=== PATIENT | female | born 1985 | race Hispanic/Latino ===

== ENCOUNTER 2017-06-05 15:35 | Emergency (ER) | payer OTHER ==
[~2017-06-05] VITALS: Ht 152.4 cm; Wt 61.4 kg
[~2017-06-05 15:35] MED LIST: FLUD0.1T PO; HYDR-4003 PO; IBUP-1827 PO; NORT25CA PO; PANT20TA2 PO; PRD5T PO
[2017-06-05 15:49] VITALS: BP 139/90; PULSE 73; RESP 16; O2SAT 100
--- NOTE | 2017-06-05 15:59 | ED.REPORT ---
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 right hand dominant. primary care is kvng. 06/22 with movement 04/22 with not moving. Was building stairs and was putting in a screw, the drill jumped and hit her in the hand. Nursing Notes Stated Complaint: RIGHT ARM INJURY Chief Complaint: Extremity Trauma Nursing Notes Reviewed: Yes Allergies: Coded Allergies: No Known Allergies (Verified , 06/05/17) Scheduled Fludrocortisone Acetate (Fludrocortisone Acetate) 0.1 Mg Tablet 0.1 MG PO HS Nortriptyline (Nortriptyline) 25 Mg Capsule 25 MG PO HS Pantoprazole DR (Pantoprazole DR) 20 Mg Tablet.dr 20 MG PO BID Prednisone (PredniSONE) 5 Mg Tab 5 MG PO HS Scheduled PRN Hydrocodone-Acetaminophen 5-325 mg (Hydrocodone-Acetaminophen 5-325 mg) 1 Each Tablet 1-2 TABLET PO Q4H PRN PRN For Moderate Pain Ibuprofen (Ibuprofen) 600 Mg Tablet 600 MG PO QID PRN PRN For Pain General Time Seen by MD: 15:58 Chief Complaint Hand injury right Hx Obtained From: Patient Caused by: Accidental Context: Occurred at: Home injury Location: : Hand right Severity: Current: Pain level 8 out of 10 Past Medical History Past Medical History adrenal insufficiency on chronic steroids chronic UTIs secondary to a vaginal reconstruction surgery Reports: GERD Past Surgical History vaginal reconstruction surgery as a child bladder/vaginal lift in 1998 Reports: , Cholecystectomy Smoking History Never Smoker Social History Alcohol Use: Denies alcohol use Drug Use: Denies drug use Other Social History: Good social support, Local resident Occupation lives by self and with son, 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 06/05/2017 Ambulatory Status Independent Review of Systems Basic Review of Systems Eyes: Vision NL, No discharge : No dysuria, No frequency Psychiatric: Normal thought content Physical Exam Initial Vital Signs Vital Signs (First) Date Time Temp Pulse Resp B/P Pulse Ox O2 Delivery O2 Flow Rate FiO2 06/05/17 15:49 36.8 73 16 139/90 100 Room Air Initial VS: Reviewed, Vital signs normal General/Constitutional: Well-developed, Well-nourished Head / Eyes: Atraumatic, Normocephalic, PERRL ENT: Mucous membranes moist, Conjunctiva normal, No scleral icterus Neck: Supple, Non-tender, Full range of motion Respiratory: Breath sounds normal, Clear to auscultation, No respiratory distress Cardiovascular: Regular rate & rhythm, Heart sounds normal, Intact distal pulses Abdomen / GI: Soft, Non-tender, No guarding, No rebound, No distention Back: No CVA tenderness Lymphatic: No lymphadenopathy Lower Extremities: Vascular intact, Neuro intact, No swelling, No tenderness Skin: Warm, Dry, No cyanosis Neurologic: Alert, Oriented, Nonfocal Psychiatric: Mood/affect normal, Behavior normal, Normal thought content General/Constitutional: Awake, Alert, No acute distress, Well appearing, Well developed, Well hydrated Respiratory / Chest: Atraumatic, Breath sounds NL, Breath sounds = bilat, No respiratory distress Cardiovascular: Heart rate NL, Regular rhythm, Heart sounds NL, No gallop Upper Extremity / MS: Atraumatic, Inspection NL, Full range of motion, No swelling Left Hand: Positive: Erythema present, Ganglion cyst present, Joint effusion present, ROM reduced, Tenderness present..., Warmth present patient with voluntary guarding. sensation intact, cap refill less than 2 sec. Interpretation & Diagnostics X-Ray Interpretation Xray Interpretation: ROCEDURE: X-RAY RIGHT HAND, MINIMUM THREE VIEWS ([id number]) INDICATIONS: trauma TECHNIQUE: 3 views of the hand(s) acquired. COMPARISON: None. FINDINGS: Bones: There is an oblique, minimally displaced fracture through the mid and proximal portion of the fourth metacarpal. There is no visible intra-articular extension. Soft tissues: No suspicious soft tissue calcifications. IMPRESSION: Oblique proximal and mid fourth metacarpal fracture. Dictated by: Kaylyn Arroyo M.D. on 06/05/2017 at 16:44 Approved by: Kaylyn Arroyo M.D. on 06/05/2017 at 16:45 Re-Eval/Medical Decision Med Decision/Clinical Course 31 year old female presents to the Er for evualation of right hand pain after she was drilling and the drilled jumped nad hit her hand. No sign of compartment syndrome. X-ray shows a fracture Discharge & Departure Impression: Primary Impression: Hand fracture, right Encounter type: initial encounter Fracture type: closed Qualified Code: S62.91XA - Unspecified fracture of right wrist and hand, initial encounter for closed fracture Disposition: Home Patient Instructions: Hand Fracture (ED) Additional Instructions: The x-ray shows that you have a 4th metacarpal fracture. I am sorry this happened. Keep the splint on and dry till you are seen by ortho Dr. Bo. You can purchase a cast protector at any drug store to keep the splint dry. Use ice 15 minutes on and 15 minutes off. Use ibuprofen 800 mg 3 times a day for 5 days to reduce the swelling. Elevate the hand as much as possible. Use hydrocodone 1 up to 2 times a day as needed for severe unrelenting pain. Note for off work for 1 week. Referrals: Staci Gonzalez MD (PCP) Chago Bo DO EDSupervising Provider for APC: Daniel Garcia MD Attending Statement I saw and evaluated the patient in conjunction with the DIRECTOR OF MATERIALS MANAGEMENT. I agree with the plan and findings as documented above. In brief, 31-year-old female presenting to the ED for evaluation of right hand pain. Well appearing, no acute distress. Nonlabored respirations. Good peripheral perfusion. Neurovascularly intact throughout the right hand, including in the ulnar, median, and radial nerve distributions. Good cap refill. Splinted as per above and remains neurovascularly intact after splint placement. Given above, plan discharge home w/ careful return precautions, close orthopedic outpatient follow up. Patient agreeable to plan as stated, no further questions. copies to: Chago Bo DO; Staci Gonzalez MD, Sue [facility] Jun 05, 2017 15:59 Daniel Garcia MD Jun 05, 2017 16:20
[2017-06-05] MEDS ORDERED: HYDROcodone-APAP 5-325 mg Tablet PO ONE (16:45)
--- NOTE | 2017-06-05 16:46 | DRSVH ---
PROCEDURE: X-RAY RIGHT HAND, MINIMUM THREE VIEWS ([id number]) INDICATIONS: trauma TECHNIQUE: 3 views of the hand(s) acquired. COMPARISON: None. FINDINGS: Bones: There is an oblique, minimally displaced fracture through the mid and proximal portion of the fourth metacarpal. There is no visible intra-articular extension. Soft tissues: No suspicious soft tissue calcifications. IMPRESSION: Oblique proximal and mid fourth metacarpal fracture. Dictated by: Kaylyn Arroyo M.D. on 06/05/2017 at 16:44 Approved by: Kaylyn Arroyo M.D. on 06/05/2017 at 16:45
[2017-06-05 17:40] VITALS: BP 126/77; PULSE 74; RESP 16; O2SAT 100
[2017-06-09] MEDS ORDERED: IBUP800T28 PO (10:32)
[2017-06-09] MEDS ORDERED: FLUD0.1T PO (10:32)
[2017-06-09] MEDS ORDERED: PRD5T PO (10:32)
[2017-06-09] MEDS ORDERED: NORT25CA PO (10:32)
== END 2017-06-05 17:41 | disposition home or self-care (01) ==
LOC: SED 15:35
DX: S62.394A Other fracture of fourth metacarpal bone, right hand, initial encounter for closed fracture (principal); W29.8XXA Contact with other powered hand tools and household machinery, initial encounter; Y93.H3 Activity, building and construction; Y92.89 Other specified places as the place of occurrence of the external cause; Y99.8 Other external cause status; K21.9 Gastro-esophageal reflux disease without esophagitis; Z87.440 Personal history of urinary (tract) infections; Z90.49 Acquired absence of other specified parts of digestive tract; Z98.890 Other specified postprocedural states

== ENCOUNTER → 2017-06-11 | Day surgery (SDC) | payer OTHER ==
[2017-06-11] VITALS (15 sets, daily range): BP systolic 115–137; BP diastolic 63–88; PULSE 66–101; RESP 16–27; O2SAT 92–99
[~2017-06-11] VITALS: Ht 152.4 cm; Wt 65.9 kg
[~2017-06-11] MED LIST changes: +Atropine 0.4 mg/mL Inj IVPUSH PRN; +Bupivacaine-MPF 0.5% 30 mL Inj INFILTRATE ONE; +CeFAZolin 2 Gm/50 mL D5W Duplex Bag IV ONE; +CeFAZolin 2 Gm/50 mL D5W IV Premix IV ONE; +Dexamethasone 4 mg/mL Inj IVPUSH PRN; +EPHEDrine Sulfate 50 mg/mL Inj IVPUSH PRN; -HYDR-4003 PO; -IBUP-1827 PO; +IBUP800T28 PO; +Labetalol 5 mg/mL 20 mL Inj IV PRN; +Lactated Ringer's 1,000 ML IV SCH; +Lactated Ringer's 500 ML IV ONE; +Lactated Ringer's 500 ML IV PRN; +Ondansetron 2 mg/mL 2 mL Inj ONE; -PANT20TA2 PO; +Phenylephrine 10,000 mCg/mL Inj IVPUSH PRN; +Propofol 10,000 mCg/mL 20 mL Inj ONE; +fentaNYL-PF 50 mCg/mL 2 mL Inj ONE; +hydrALAZINE 20 mg/mL Inj IVPUSH PRN; +oxyCODONE-Acetamin 5-325 mg Tablet PO PRN
[2017-06-11] MEDS: Lactated Ringer's 1,000 ML IV SCH ×2 (12:08→13:00)
--- NOTE | 2017-06-11 13:20 | PCM.HPANE ---
Patient Data Date of Service: Jun 11, 2017 Surgeon Admitting Provider: Attending Provider:Ignacio Cordoba MD Primary Care Physician:Staci Gonzalez MD Other Provider:Abran Singer Anesthesia Reason for Visit Right 4TH Metacarpal Fracture Ht/WT & BMI Height (Feet): 5 Height (Inches): 0 Weight (Kilograms): 65.9 Body Mass Index 28.00 Allergies Coded Allergies: Sulfa (Sulfonamide Antibiotics) (Verified Allergy, Unknown, altered heart rate, headache, 06/11/17) Past Anesthesia History Anesthesia History: Denies:: Abnormal Airway, Anesthesia Reactions, Difficult Intubation, Fam Anesthesia Reaction, Fam Malignant Hypertherm, Malignant Hyperthermia Diabetes History Hx Diabetes?: No MRSA MRSA: No Medications Home Meds Incl Beta Nina: No Reported Medications Prednisone (PredniSONE)5 Mg Tab5 Mg PO DAILY Ref 0 06/09/17 Nortriptyline 25 Mg [id number] Mg PO HS 06/09/17 Ibuprofen 800 Mg Irkspp128 Mg PO TID PRN For Pain Ref 0 06/09/17 Fludrocortisone Acetate 0.1 Mg Tablet0.1 Mg PO DAILY Ref 0 06/09/17 Discontinued Reported Medications Nortriptyline 25 Mg Cwanemm34 Mg PO HS #60 07/23/16 Fludrocortisone Acetate 0.1 Mg Tablet0.1 Mg PO HS #30 07/23/16 Prednisone (PredniSONE)5 Mg Tab5 Mg PO HS #45 07/23/16 Discontinued Scripts Ibuprofen 600 Mg [id number] Mg PO QID PRN For Pain #16 TABLET Ref 0 Prov:Manuela Huitron DO 08/16/[address] 20 Mg Tablet.dr20 Mg PO BID 30 Days Prov:Sd Gardner DO 07/26/16 Hydrocodone-Acetaminophen 5-325 mg 1 Each Tablet1-2 Tablet PO Q4H PRN For Moderate Pain #10 TABLET Prov:Sd Gardner DO 07/26/16 History History of ENT Problems?: Yes HEENT History: Positive for:: TMJ (wears nightguard) Denies:: Abnormal Airway Cataracts Difficult Intubation Dysphagia Glaucoma Hearing Problem Denture Type: None Teeth Condition: Within Normal Limits Hx of Heart Problems?: No Cardiovascular History: Denies:: AICD Abdominal Aortic Aneurism Cardiac Surgery Congestive Heart Failure Heart Murmur Hypertension Irregular Heartbeat Pacemaker Peripheral Vascular Hx of Respiratory Problem?: No Respiratory History: Denies:: Asthma COPD Emphysema Oxygen Administration Pneumonia Tuberculosis Use of C-PAP Machine Hx Neurologic Problems?: No Neurological History: Denies:: Alzheimer's Disease CVA Dementia Dizziness Headaches Multiple Sclerosis Parkinson's Disease Seizures Hx of GI Problems?: Yes Hx of Problems?: No Genitourinary History: Denies:: HX of Hemodialysis Kidney Stones Urinary Tract Infection HX of Peritoneal Dialysis: No Female Hx: Denies:: Currently Endometriosis Pelvic Inflammatory Problems with Breasts? Skin History: Denies:: History Skin Disorders? Pressure Ulcers Hx Musculoskeletal Problems?: Yes Musculoskeletal History: Positive for:: Musculoskeletal Trauma (rigfht fourth finger fx current admission problem) Denies:: Back Injury Fibromyalgia Joint Replacement Hx of Psycho/Social Problems?: No Psycho Social History: Denies:: Anxiety Hx Depression Hx Surgeries?: Yes (Vag reconst surgery, ryan) Hx Any Other Health Problems?: Yes Other History: Positive for:: Endocrine Disease (Adrenal Insufficiency ) Hospitalization Denies:: Cancer Thyroid Disease History Blood Transfusions: Positive for:: Accept Blood Products? Denies:: Blood Transfusions Hx Diabetes: No Hx Alcohol Use: NoHx Substance Use: No Smoking Status: Never Smoker Have You Smoked inLast 12 mo: No Stop/Bang Treated for Sleep Apnea?: No Do You Have a CPAP Machine?: No S-Snoring: Do You Snore Loudly: No T-Tired: feel tired, fatigued: No O-Obsered: Observed not breath: No P-Blood Pressure: treated: No B- Body Mass Index > 35 kg/m2: No A- Age over 50: No N- Neck Large Circumference: No G- Gender Male: No RENA Total Score: 0 RENA Risk Assessment: Low Risk, <3 Yes Risk Assessment Category Category 1A: Patient has history of documented sleep apnea, and HAS NOT received any narcotic, sedative or anesthesia administration during this stay. Category 1B: Patient has history of documented sleep apnea, and HAS received any narcotic , sedative or anesthesia administration during this stay Category 2: Patient has SUSPECTED Obstructive Sleep Apnea, and HAS received any narcotic , sedative or anesthesia administration during this stay. Category 3: Patient has SUSPECTED Obstructive Sleep Apnea and HAS NOT received narcotic, sedative or anesthesia administration during this stay. Category 4: Outpatient in Procedural Areas with known sleep apnea or who screen positive for High Risk via the STOP/BANG questionnaire. Exam Exam Vital Signs Vital Signs Date Time Temp Pulse Resp B/P Pulse Ox O2 Delivery O2 Flow Rate FiO2 06/11/17 12:50 36.2 66 16 126/76 99 Room Air General Appearance: Alert, Oriented X3, Cooperative HEENT/AIRWAY: MP 2 Lungs: Clear to Auscultation, Normal Air Movement Heart: Regular Rate/Rhythm, Normal S1 Meds/Labs/Diagnostics Admission Meds Current Medications Lactated Ringer's (Lr) 1,000 ml @ 120 mls/hr Q8H20M IV Last administered on t 12:08; Start 06/11/17 at 05:00; Stop 06/11/17 at 13:19 Plan Impression Patient chart reviewed, patient interviewed and anesthestic plan with risks, benefits, and alternatives discussed, and informed consent obtained. ASA Physical Status: ASA2 Mod Systemic Disease Anesthetic Plan: GA Bene/Risks/Altern/Consents: Yes HP Complete Prior to Induction: Yes Other No indication for stress dose steroids given nature of surgery. Shon Wilhelm MD Jun 11, 2017 13:19
--- NOTE | 2017-06-11 16:51 | PCM.ANEP1 ---
Post Anesthesia PACU Phase 1 Assessment Date of Service: Jun 11, 2017 Vital Signs Vital Signs Date Time Temp Pulse Resp B/P Pulse Ox O2 Delivery O2 Flow Rate FiO2 06/11/17 16:45 36.6 81 22 115/88 98 Simple Mask 8 06/11/17 12:50 36.2 66 16 126/76 99 Room Air Anesthetic Administered: GA Level of Alertness: Sleepy, easy to arouse BRAND's with Equal Strength: Yes Pain: No Nausea or Vomiting: No CV Function & Hydration Stable: Yes Airway Device: Oxygen Delivery: Simple Mask Lungs: Normal Air Movement Dermatome Level: Full Sensation PACU Phase 2 Assessment Complications: No Follow up Care: N/A Patient Instructions Provided: N/A Shon Wilhelm MD Jun 11, 2017 16:51
[2017-06-11] MEDS: HYDROmorphone 1 mg/mL Inj IVPUSH PRN ×2 (17:04→17:12)
[2017-06-11] MEDS: fentaNYL-PF 50 mCg/mL 2 mL Inj IVPUSH PRN ×2 (17:05→17:20)
[2017-06-11] MEDS: Ondansetron 2 mg/mL 2 mL Inj IVPUSH PRN ×2 (17:40→19:30)
[2017-06-11] MEDS: MetoCLOpramide 5 mg/mL 2 mL Inj IVPUSH PRN ×2 (18:00→19:30)
--- NOTE | 2017-06-11 20:07 | OP ---
[address] [address] OPERATIVE REPORT PATIENT: ELVA TALAVERA : 1985 MR#: [id number] ADMIT: 06/11/2017 JOB ID: [id number] DATE OF SURGERY: 06/11/2017 SURGEON: Ignacio Cordoba MD PREOPERATIVE DIAGNOSIS(ES): Displaced right 4th metacarpal spiral shaft fracture. ICD 10 code S62.324A POSTOPERATIVE DIAGNOSIS(ES): Displaced right 4th metacarpal spiral shaft fracture. ICD 10 code S62.324A PROCEDURE: Open reduction, internal fixation, right 4th metacarpal spiral shaft fracture. CPT code 86249. ANESTHESIA: General. ESTIMATED BLOOD LOSS: 5 mL. DRAINS: None. COMPLICATIONS: None. SPONGE AND NEEDLE COUNT: Correct. SPECIMEN: No specimen to Pathology. IMPLANTS UTILIZED: Synthes 1.5 mm variable angle locked hand plate. INDICATIONS: A 31-year-old female was using a drill. She twisted her hand sustaining a long spiral fracture of the right ring metacarpal. The patient was neurovascularly intact. PROCEDURE IN DETAIL: Under adequate general anesthetic, a well-padded tourniquet was applied to the right upper extremity. Right arm was prepped and draped in sterile fashion. After appropriate time-out was called, the right arm was elevated, exsanguinated, tourniquet inflated to 250 mmHg. A longitudinal incision was fashioned over the 4th metacarpal shaft. The plate had been sized previously. Care was taken to protect surrounding neurovascular structures, in particular, the dorsal sensory branch of the ulnar nerve as well as extensor tendons. The fascia over the extensor tendons was released and the extensor tendon to the ring finger was retracted in an ulnar fashion. The periosteum over the bone was incised and elevated. The fracture was visualized and then it was subsequently reduced. A 1.5 mm variable angle locking Synthes plate was then transfixed to the bone. The fracture had long volar longitudinal split fragment. It was felt that it would be best served with some interfragmentary screws through the plate due to the configuration of the fracture. The screw was drilled and filled with a nonlocking screw distal to the fracture site. A screw was drilled and filled in proximal 4th metacarpal metaphysis with a locking screw. Additional nonlocking screw was placed distally in the plate, drilling and filling with 1.5 mm screw compressing the plate to the bone. Additional screw holes were drilled and filled. One additional screw hole was drilled and filled proximally as it is a locking screw at the base of the metacarpal metaphysis. Two additional screws were drilled and filled in a lag fashion along the fracture line. One additional locking screw was placed just proximal to the distal nonlocking screw. A total of six screws were utilized. The patient had good rotation of the ring finger postoperatively. There was no angular deformity. Permanent x-rays confirmed good position of the plate and screws. After the plate and screws were placed, the wound was irrigated with saline solution. Skin was infiltrated with 0.5% plain Marcaine. Soft tissue muscle fascia was closed over the plate with interrupted sutures of 3-0 Vicryl. Tourniquet was released. Minimal hemostasis required. Subcutaneous layers were closed with interrupted sutures of 4-0 Monocryl and skin was reapproximated with a running subcuticular suture of 4-0 Monocryl. Mastisol and Steri-Strips were applied. Dry sterile dressing was applied over Xeroform. The patient was placed in a well-padded volar fiberglass splint incorporating the long, ring and little fingers. She was taken to recovery room in stable condition. Sponge and needle count correct. No complications. PLAN: Patient already has an appointment for hand therapy next week. They will make her a hand splint and begin range of motion to the fingers. She was discharged home on Percocet 10/325, #40, Vistaril 25 mg #40, and Keflex 500 mg three times a day. She should take the antibiotic medications until they are completed and the other medications are on a p.r.n. basis. cc: [facility] Orthopedics cc: Trevor Love
== END | disposition home or self-care (01) ==
LOC: SAS 11:56
PROVIDERS: ATTEND Orthopaedic Surgery
DX: S62.324A Displaced fracture of shaft of fourth metacarpal bone, right hand, initial encounter for closed fracture (principal); X50.1XXA Overexertion from prolonged static or awkward postures, initial encounter; Y93.H3 Activity, building and construction; Y92.019 Unspecified place in single-family (private) house as the place of occurrence of the external cause; E78.5 Hyperlipidemia, unspecified; I10 Essential (primary) hypertension; K21.9 Gastro-esophageal reflux disease without esophagitis; E27.1 Primary adrenocortical insufficiency
CPT/HCPCS: 26615; J0690; J1170; J2250; J2405; J2704; J2765; J3010; J7120